=== PATIENT | female | born 1945 | race Caucasian/White ===

== ENCOUNTER → 2022-09-11 09:04 | Outpatient (CLI) | payer OTHER, SELFPAY ==
--- NOTE | 2022-09-11 | DI.ECHO.S_ITS ---
Version: 1 Study ID: [id number] [id number] [place] [id number] Name: KEON TUBBS Study Date: 09/11/2022, 9: 13 AM : 1945 BP: 181 / 90 mmHg Gender: Female Height: 71 in Age: 77 Years Weight: 155.003 lb BSA: 1.89 mA? Ordering: HUGO SANCHEZ Referring: HUGO SANCHEZ Clinician: Lydia Chandra Reason For Study: [place] Heart Disease History: Summary Statements Sinus bradycardia. Heart rate is 47-50 bpm. Normal LV size and wall thickness; there is distal septal hypokinesis; otherwise normal wall motion. EF is 60-65%. Stage II diastolic dysfunction. Normal chamber sizes. No significant valvular abnormalities. No prior study available for comparison. Procedure: A two-dimensional transthoracic echocardiogram with color flow and Doppler was performed. The study quality was technically difficult. There is no prior echocardiogram noted for this patient. The patient was in normal sinus rhythm during the exam. Left Ventricle: Diastolic parameters suggest a pseudonormalization pattern, consistent with probable elevated filling pressures. The ejection fraction is estimated to be 60-65%. The left ventricle is normal in size. Right Ventricle: The right ventricular systolic function is normal. The right ventricle is normal size. Atria: There is no Doppler evidence for an interatrial shunt. The left atrial size is normal. Right atrial size is normal. Mitral Valve: There is mild mitral regurgitation. There is no mitral valve stenosis. The mitral valve leaflets appear mildly thickened, but open well. Aortic Valve: There is trace aortic regurgitation. There is no aortic valve stenosis. The aortic valve is trileaflet. The aortic valve opens well. There is mild aortic valve sclerosis. Tricuspid Valve: There is trace tricuspid regurgitation. There is no tricuspid stenosis. The tricuspid valve is normal. Pulmonic Valve: There is no pulmonic valvular regurgitation. There is no pulmonic valvular stenosis. The pulmonic valve leaflets are thin and pliable; valve motion is normal. Great Vessels: The ascending aorta is normal in size. The aortic root is normal size. The IVC is of normal diameter and collapses greater than 50% with a sniff. This suggests a low right atrial pressure of 3 mm Hg. The pulmonary artery is normal size. Pericardium/ Pleura: There is no pericardial effusion. There is no pleural effusion. 2D and M-Mode Measurements and Calculations LVIDd: 5.0 cm AoV Openin.90 cm LVIDs: 4.2 cm LVOT diam: 1.90 cm IVSd: 1.30 cm Ao root diam: 3.0 cm LVPWd: 1.10 cm asc Aorta Diam: 2.8 cm LV walls. diameter/BSA (cm/m^2): 2.6 LV sys. diameter/BSA (cm/m^2): 2.22 RVD1 (basal): 3.9 cm LA A4 area: 18.4 scarifier operator? RA area: 14.7 scarifier operator? LA A2 area: 18.4 scarifier operator? RA long axis: 4.9 cm LA length (vol): 5.7 cm RA vol: 37.7 ml LA vol: 50.9 ml RA : 19.9 ml/mA? LA vol index: 26.9 ml/mA? Doppler Measurements and Calculations Ao V2 max: 108.0 cm/sec LVOT Max Vaughn: 80.1 cm/sec Ao V2 mean: 74.1 cm/sec LV V1 max P.6 mmHg Ao V2 VTI: 31.1 cm LV V1 VTI: 21.9 cm Ao max P.0 mmHg SV(LVOT): 62.1 ml Ao mean P.00 mmHg RADAMES(I,D): 2.00 scarifier operator? RADAMES(V,D): 2.10 scarifier operator? RADAMES indexed to BSA (cm^2/m^2): 1.06 sev ratio: 0.70 MV E max vaughn: 99.4 cm/sec MV dec time: 0.44 sec MV A max vaughn: 49.9 cm/sec MV E/A: 1.99 Med Peak E' Vaughn: 5.0 cm/sec Lat Peak E' Vaughn: 9.9 cm/sec E/e' average: 14.9 TR max vaughn: 197.0 cm/sec PA mean P.00 mmHg TR max P.5 mmHg PA V2 max: 92.2 cm/sec Fabiana Reyes M.D. Electronically signed by: Fabiana Reyes M.D. 09/14/2022, 8: 20 AM
== END ==
PROVIDERS: Referring Provider Family Medicine; Visit Provider Family Medicine
DX: I25.9 Chronic ischemic heart disease, unspecified (principal); I08.0 Rheumatic disorders of both mitral and aortic valves
CPT/HCPCS: 93306